=== PATIENT | female | born 1995 | race American Indian/Alaskan Native ===

== ENCOUNTER 2016-10-24 16:42 | Emergency (ER) | payer SELFPAY ==
[2016-10-24 17:59] LABS: Basophils % (Auto) 0.8 % (0.0-1.8); Eosinophils % (Auto) 1.4 % (0.0-4.3); Hematocrit 35.7 % (30.3-42.9); Hemoglobin 11.5 gm/dl (10.1-14.3); Mean Corpuscular HGB Conc 32 % (30-34); Mean Corpuscular Hemoglobin 28 pg (28-32); Mean Corpuscular Volume 87 fl (79-97); Platelet Count 321 K/mm3 (140-440)
[2016-10-24 18:25] LABS: Anion Gap 16 mmol/L; BUN/Creatinine Ratio 14.28; Blood Urea Nitrogen 10 mg/dL (7-17); Calcium 9.1 mg/dL (8.4-10.2); Carbon Dioxide 25 mmol/L (22-30); Chloride 100.6 mmol/L (98-107); Glucose 77 mg/dL (65-100); Potassium 3.5 mmol/L (3.6-5.0); Sodium 138 mmol/L (137-145)
[2016-10-24 18:36] LABS: Bilirubin,Urine NEG (Negative); Blood,Urine NEG (Negative); Ketones,Urine NEG (Negative); Leukocyte Esterase,Urine NEG (Negative); Mucus,Urine FEW /HPF; Nitrite,Urine NEG (Negative); Protein,Urine <15 mg/dL mg/dL (Negative); Urobilinogen,Urine < 2.0 mg/dL (<2.0)
[2016-10-24 20:56] VITALS: BP 111/74
[2016-10-24] MEDS ORDERED: DUONEB 0.5 MG-3 MG/3 ML SOLN IH ONE (20:56)
[2016-10-24 22:06] LABS: INR 1.03 (0.87-1.13)
[2016-10-24 22:07] LABS: Partial Thromboplastin Time 30.3 Sec. (24.2-36.6)
--- NOTE | 2016-10-25 07:27 | XRay Report ---
CHEST 2 VIEWS INDICATION: Shortness of breath, chest pain. Cough for 2 days. Back pain, asthma. COMPARISON: None similar at this institution. FINDINGS: PA and lateral chest radiographs demonstrate normal heart size, though slight left atrial prominence possible. Normal mediastinal and hilar contours. Clear lungs. Intact bones. Right nipple piercing ornament. CONCLUSION: No acute disease with slight left atrial prominence questioned, as above. Please correlate. Thank you for the opportunity to participate in this patient's care.
== END 2016-10-24 21:45 | disposition left against medical advice (07) ==
LOC: ED 16:42
DX: R10.13 Epigastric pain (principal); Z53.21 Procedure and treatment not carried out due to patient leaving prior to being seen by health care provider
CPT/HCPCS: 36415; 71020; 80048; 81001; 81025; 84484; 85025; 85610; 85730; 93005; 93010